=== PATIENT | female | born 1960 | race Two or more races ===

== ENCOUNTER 2023-12-02 10:29 | Outpatient (REF) | payer OTHER, SELFPAY ==
--- NOTE | 2023-12-02 10:36 | EMG_ITS ---
Bilateral median and ulnar motor and sensory studies were performed. Bilateral radial sensory and median and lateral antecubital brachial sensory studies were performed. IMPRESSION: 1. Mild right ulnar neuropathy across cubital tunnel. 2. Mild right median neuropathy across carpal tunnel. 3. No significant abnormality noted on the left side. MD TIM Carlos/FRANCHESCA / [id number]
== END 2023-12-02 10:30 | disposition home or self-care (01) ==
LOC: HO.NEURO 10:29
PROVIDERS: PCP Internal Medicine; Visit Provider Internal Medicine
DX: G56.23 Lesion of ulnar nerve, bilateral upper limbs (principal)
CPT/HCPCS: 95886; 95913